=== PATIENT | female | born 1955 | race Caucasian/White ===

== ENCOUNTER 2018-01-15 06:18 | Inpatient (IN) | payer OTHER ==
[~2018-01-15] VITALS: Ht 162.6 cm; Wt 79.6 kg
[2018-01-15 06:20] VITALS: Ht 162.6 cm; Wt 79.6 kg
[2018-01-15 07:10] LABS: CALCIUM 8.4 mg/dL (8.5-10.1); CARBON DIOXIDE 25.3 mmol/L (21-32); CHLORIDE SERUM 102 mmol/L (98-107); CREATININE SERUM 0.7 mg/dL (0.6-1.0); GFR1 > 60 mL/min; GLUCOSE SERUM 80 mg/dL (74-106); POTASSIUM SERUM 3.9 mmol/L (3.5-5.1); SODIUM SERUM 139 mmol/L (136-145)
[2018-01-15 07:19] LABS: PLATELET COUNT 233 x10^3mcL (130-400); RED CELL DISTRIBUTION WIDTH 13.6 % (11.5-14.5)
[2018-01-15 07:20] LABS: ALBUMIN 3.3 g/dL (3.4-5.0); ALKALINE PHOSPHATASE 67 U/L (46-116); ALT/SGPT 23 U/L (14-59); AST/SGOT 27 U/L (15-37); BILIRUBIN TOTAL 0.2 mg/dL (0.20-1.00); C REACTIVE PROTEIN 3.3 mg/dL (<=0.9); TOTAL PROTEIN, SERUM 7.5 g/dL (6.4-8.2)
[2018-01-15 07:27] LABS: FREE T4 0.9 ng/dL (0.76-1.46); FREE THYROXINE INDEX 2.1 ug/dL (1.4-4.5); T3 TOTAL 0.92 ng/mL
[2018-01-15 07:28] LABS: CK-MB 1.1 ng/mL (0-3.6)
[2018-01-15 08:27] LABS: ERYTHROCYTE SED RATE 46 mm/hr (0-30)
[2018-01-15 09:38] LABS: UA SPECIFIC GRAVITY 1.025 (1.005-1.035); microscopic required? YES; urine erythrocyte 3+ (NEGATIVE)
[2018-01-15] MEDS ORDERED: LISINOPRIL40 MG PO (10:37)
[2018-01-15] MEDS ORDERED: AMLODIPINE BES2.5 M1 PO (10:37)
[2018-01-15] MEDS ORDERED: PREDNISONE20 MG PO (10:38)
[2018-01-15] MEDS ORDERED: ALBUTEROL0.63 MG/3 (10:40)
[2018-01-15 11:05] VITALS: BP 147/88
[2018-01-15 13:19] VITALS: BP 142/69
[2018-01-15 17:36] VITALS: BP 136/69
[2018-01-15 20:54] VITALS: BP 116/59
[2018-01-16 05:47] VITALS: BP 128/68
[2018-01-16 06:45] LABS: PLATELET COUNT 219 x10^3mcL (130-400); RED CELL DISTRIBUTION WIDTH 14.4 % (11.5-14.5)
[2018-01-16 07:04] LABS: BASOPHIL % 0 % (0-2)
[2018-01-16 07:07] LABS: ALKALINE PHOSPHATASE 63 U/L (46-116); ALT/SGPT 21 U/L (14-59); AST/SGOT 16 U/L (15-37); BILIRUBIN TOTAL 0.2 mg/dL (0.20-1.00); CALCIUM 8.4 mg/dL (8.5-10.1); CARBON DIOXIDE 27.3 mmol/L (21-32); CHLORIDE SERUM 103 mmol/L (98-107); CREATININE SERUM 0.7 mg/dL (0.6-1.0); GFR1 > 60 mL/min; GLUCOSE SERUM 166 mg/dL (74-106); PHOSPHOROUS 2.6 mg/dL (2.5-4.9); SODIUM SERUM 138 mmol/L (136-145); TOTAL PROTEIN, SERUM 6.7 g/dL (6.4-8.2)
[2018-01-16 07:09] LABS: ALBUMIN 2.8 g/dL (3.4-5.0)
[2018-01-16 09:18] VITALS: BP 122/60
[2018-01-16 13:18] VITALS: BP 122/60
== END 2018-01-16 14:35 | disposition home or self-care (01) | DRG 203 ==
LOC: ED 06:18 → MU 10:28
PROVIDERS: Internal Medicine Pulmonary Disease; Specialist
DX: J45.901 Unspecified asthma with (acute) exacerbation (principal); M06.9 Rheumatoid arthritis, unspecified; I10 Essential (primary) hypertension; E66.9 Obesity, unspecified; Z68.29 Body mass index [BMI] 29.0-29.9, adult; Z87.891 Personal history of nicotine dependence
CPT/HCPCS: 36600; 84439; 87804; J1644; J2920; J2930; J3475; J7030; J7613; J7620; J7626; J7644; Q0092